=== PATIENT | female | born 1970 | race Caucasian/White ===

== ENCOUNTER 2022-07-22 19:35 | Emergency (ER) | payer BC, OTHER ==
[~2022-07-22] VITALS: Ht 157.5 cm; Wt 81.0 kg
[2022-07-22 21:17] LABS: Urine Bacteria FEW /hpf (None Seen); Urine Blood Negative /uL (Negative); Urine Specific Gravity 1.027 (1.001-1.035); Urine WBC <1 /hpf (0 - 5)
[2022-07-22 21:29] LABS: Alcohol, Urine < 3.0 mg/dL (0-10); Amphetamine Screen, Urine NEGATIVE (NEGATIVE); Barbiturate Scree,Urine NEGATIVE (NEGATIVE); Benzodiazephine Screen, Urine NEGATIVE (NEGATIVE); Cannabinoid Screen, Urine NEGATIVE (NEGATIVE); Cocaine Screen, Urine NEGATIVE (NEGATIVE); Opiate Scree,Urine NEGATIVE (NEGATIVE); Phencyclidine Screen, Urine NEGATIVE (NEGATIVE)
[2022-07-22 21:50] LABS: Basophils # (auto) 0 10 ^3/uL (0-0.2); Basophils % (auto) 0.4 % (0.0-2.0); Eosinophils # (auto) 0 10 ^3/uL (0-0.8); Eosinophils % (auto) 0.1 % (0.0-7.0); Hematocrit 42.6 % (36.0-46.0); Hemoglobin 14.5 g/dL (12.2-16.2); Lymphocytes # (auto) 1.4 10 ^3/uL (0.4-5.4); Lymphocytes % (auto) 11.8 % (10.0-50.0); Mean Corpuscular Hemoglobin 29.7 pg (28.0-32.0); Mean Corpuscular Volume 87.1 fL (80.0-100.0); Monocytes # (auto) 0.5 10 ^3/uL (0-1.3); Monocytes % (auto) 4.2 % (0.0-12.0); Neutrophils # (auto) 10.2 10 ^3/uL (1.6-8.6); Neutrophils % (auto) 83.5 % (37.0-80.0); Nucleated Red Blood Cells % 0.1 %; Red Blood Cells 4.89 10^6/uL (4.0-5.20); White Blood Cell 12.3 10^3/uL (4.4-10.8)
[2022-07-22 21:54] LABS: Albumin 3.6 g/dL (3.4-5.0); Calcium 8.9 mg/dL (8.5-10.1); Potassium 3.8 mmol/L (3.5-5.1)
[2022-07-22 21:58] LABS: BUN/Creatinine Ratio 27.5 (10.0-20.0); Bilirubin, Total 0.3 mg/dL (0.2-1.0)
[2022-07-22] MEDS ORDERED: ONDANSETRON ODT 4 MG TAB PO ONE (22:00)
[2022-07-22] MEDS ORDERED: HYDROcodone-ACET 10/325MG TAB PO ONE (22:00)
[2022-07-22] MEDS ORDERED: HYDR-4902 PO (22:35)
[2022-07-22] MEDS ORDERED: METF-370 PO (22:35)
[2022-07-22] MEDS ORDERED: IBUP600T27 PO (22:35)
[2022-07-22 22:55] VITALS: BP 171/84
== END 2022-07-22 23:02 | disposition home or self-care (01) ==
LOC: ER 19:35
DX: S93.401A Sprain of unspecified ligament of right ankle, initial encounter (principal); S70.01XA Contusion of right hip, initial encounter; S40.012A Contusion of left shoulder, initial encounter; M54.2 Cervicalgia; R73.9 Hyperglycemia, unspecified; I10 Essential (primary) hypertension; W18.39XA Other fall on same level, initial encounter; Y93.89 Activity, other specified; Y92.89 Other specified places as the place of occurrence of the external cause; Y99.8 Other external cause status
CPT/HCPCS: 36415; 70450; 71250; 72125; 73030; 73610; 74176; 80053; 80307; 81001; 84484; 85025; 93005; 99285; Q0162